=== PATIENT | female | born 1930 | race Asian ===

== ENCOUNTER 2020-01-24 22:55 | Inpatient (IN) | payer BC, MEDICAID ==
[~2020-01-24] VITALS: Ht 157.5 cm; Wt 85.7 kg
[~2020-01-24 22:55] MED LIST: AMLO5TAB15 PO; DEXL60CA4 PO; DONE5TAB31 PO; GLIP5TAB12 PO; LEVO25TA6 PO; LEVOTAB51 PO; LINA5TAB PO; MEMA21CA PO; METF-916 PO; NEBI5TAB2 PO; OLME1TAB23 PO; RALO1TAB PO
[2020-01-24] MEDS ORDERED: PROMETHAZINE HCL 25 MG/ML 1ML ONE (23:17)
[2020-01-24] MEDS ORDERED: HYDROmorphone HCL 2 MG/ML VL IV ONE (23:30)
[2020-01-24] MEDS ORDERED: PROMETHAZINE HCL 25 MG/ML 1ML IM ONE (23:30)
[2020-01-24] MEDS ORDERED: SODIUM CHLORIDE 0.9% 1,000 ML IV ONE (23:30)
[2020-01-24 23:47] LABS: Basophils # (auto) 0 10 ^3/uL (0-0.2); Basophils % (auto) 0.1 % (0.0-2.0); Eosinophils # (auto) 0 10 ^3/uL (0-0.8); Hematocrit 40.9 % (36.0-46.0); Hemoglobin 13.5 g/dL (12.2-16.2); Lymphocytes # (auto) 0.5 10 ^3/uL (0.4-5.4); Lymphocytes % (auto) 4.3 % (10.0-50.0); Mean Corpuscular Hemoglobin 31.5 pg (28.0-32.0); Mean Corpuscular Volume 95.5 fL (80.0-100.0); Monocytes # (auto) 0.6 10 ^3/uL (0-1.3); Monocytes % (auto) 5.1 % (0.0-12.0); Neutrophils # (auto) 10.5 10 ^3/uL (1.6-8.6); Neutrophils % (auto) 90.5 % (37.0-80.0); Platelet Count (auto) 187 10^3/uL (140-450); Red Blood Cells 4.28 10^6/uL (4.0-5.20); White Blood Cell 11.6 10^3/uL (4.4-10.8)
[2020-01-25 00:09] LABS: INR 0.95 (0.9-1.15); Partial Thromboplastin Time 23.8 sec (23.0-31.2)
[2020-01-25 00:12] LABS: Albumin 4.2 g/dL (3.4-5.0); BUN/Creatinine Ratio 21.4; Calcium 9.6 mg/dL (8.5-10.1); Magnesium 2.1 mg/dL (1.6-2.6)
[2020-01-25 00:17] LABS: Bilirubin, Total 0.8 mg/dL (0.2-1.0); Total Protein 8.8 g/dL (6.4-8.2)
[2020-01-25] MEDS ORDERED: metroNIDAZOLE 500MG/100ML 100 ML IV ONE (04:15)
[2020-01-25] MEDS ORDERED: PIPERACILLIN-TAZOB 3.375GM 100 ML IV ONE (04:15)
[2020-01-25] MEDS ORDERED: POTASSIUM CHL 20MEQ/100ML 100 ML IV ONE (06:00)
[2020-01-25] MEDS ORDERED: SODIUM CHLORIDE 0.9% 1,000 ML IV SCH (06:00)
[2020-01-25] MEDS ORDERED: MORPHINE SULF INJ 2 MG/ML SYRINGE 1ML IV PRN (06:00)
[2020-01-25] MEDS ORDERED: NITROGLYCERIN 0.4 MG SL TAB SL PRN (06:00)
[2020-01-25] MEDS ORDERED: InsuLIN REG 1unit/0.01ml Soln (100units/ml) ONE ×2 (08:21→09:01)
[2020-01-25] MEDS ORDERED: LIDOCAINE 1% (LOCAL ANESTH.) PF 5ml SDV ONE (08:51)
[2020-01-25] MEDS ORDERED: SUCCINYLCHOLINE CHLORIDE 20 MG/ML 10ML VIAL IV ONE (08:51)
[2020-01-25] MEDS ORDERED: ETOMIDATE (2MG/ML) 20ML VIAL IV ONE (08:54)
[2020-01-25] MEDS ORDERED: ROCURONIUM 10MG/ML 10ML VIAL IV ONE (08:54)
[2020-01-25] MEDS ORDERED: fentaNYL CITRATE 100 MCG/2 ML VL ONE (10:27)
[2020-01-25] MEDS ORDERED: ePHEDrine SULFATE 50 MG/ML AMP ONE (10:27)
[2020-01-25] MEDS ORDERED: SODIUM CHLORIDE LOCK 10 ML ONE ×2 (10:27→10:33)
[2020-01-25] MEDS ORDERED: PHENYLEPHRINE HCL 10 MG/ML VL ONE (10:33)
[2020-01-25] MEDS ORDERED: HYDROmorphone HCL 2 MG/ML VL IV ONE (11:30)
[2020-01-25] MEDS ORDERED: GLYCOPYRROLATE 0.2 MG/ML 1ML VIAL ONE (11:32)
[2020-01-25] MEDS ORDERED: NEOSTIGMINE 1 MG/ML INJ (10mg/10ML VIAL) ONE (11:32)
[2020-01-25] MEDS ORDERED: NALOXONE HCL 0.4 MG/ML VIAL IV PRN (12:00)
[2020-01-25] MEDS ORDERED: ACCU-CHEK COMFORT CURVE STRIP VI ONE (12:00)
[2020-01-25] MEDS ORDERED: HYDROmorphone HCL 2 MG/ML VL IV PRN (12:00)
[2020-01-25] MEDS ORDERED: ONDANSETRON HCL 4 MG/2 ML VIAL IV PRN (12:00)
--- NOTE | 2020-01-25 15:50 | NUR ---
RECEIVED REPORT FROM [employer] WORKFORCE PLANNER RE PATIENT STATUS AND FOR CONTINUATION OF CARE
--- NOTE | 2020-01-25 16:05 | NUR ---
PATIENT ADMITTED S/P EX. LAPAROTOY WITH RELEASED OF BOWEL OBSTRUCTION AND LYSIS OF ADHESION
--- NOTE | 2020-01-25 16:05 | NUR ---
Telemetry admit from PACU RIGO DEE admitted to Telemetry unit after SBAR received. Patient oriented to primary RN, unit, room, bed, and unit policies regarding patient care and visiting hours. Patient now on continuous telemetry monitoring, tele box #[id number] and telemetry reading on arrival to unit is SINUS TACH 103.ABDOMINAL DRESSING DRY INTACT,ABDOMINAL BINDER IN PLACE,MARY CATHETER IN PLACE DRAINING BLOODY TINGE URINE (PER PASSEMENTERIE WORKER,MD AWARE) Patient placed on bedside oxygen AT 3 LITERS NASAL CANNULA SATURATING 96%,INSTRUCTED NPO EXCEPT ICE CHIPS,IV SITE TO RIGHT AC g3 #20,VITAL SIGNS TAKEN BP 112/70,TEMP: 98.3,HR103,RR 22,CALL LIGHT WITHIN REACH,INSTRUCTED TO CALL FOR ASSISTANCE,CAREER CENTER DIRECTOR AT BEDSIDE,questions and concerns addressed, patient verbalized understanding.
[2020-01-25 16:29] VITALS: BP 112/70
[2020-01-25] MEDS: D5W/SOD CHL 0.45%/KCL 20MEQ 1,000 ML IV SCH ×2 (16:59→21:30)
[2020-01-25] MEDS: MORPHINE SULFATE 4 MG/ML SYR/VIAL IV PRN (16:59)
[2020-01-25 17:47] VITALS: BP 112/70
--- NOTE | 2020-01-25 19:18 | NUR ---
Opening note Assumed care of patient, patient is alert and orientated x4. No sob or distress noted at this time. Patient is resting in bed. Eating ice chips. Bed is locked in lowest position, side rails up x2.ABDOMINAL DRESSING DRY AND INTACT,ABDOMINAL BINDER IN PLACE. Call light is within reach, bed alarm is on. Will continue to monitor q1hr and PRN.
[2020-01-25] MEDS: metroNIDAZOLE 500MG/100ML 100 ML IV SCH ×2 (21:07→22:58)
[2020-01-25 22:00] VITALS: BP 116/71
[2020-01-26 05:00] VITALS: BP 135/72
[2020-01-26] MEDS: metroNIDAZOLE 500MG/100ML 100 ML IV SCH ×3 (05:41→21:03)
[2020-01-26 06:50] LABS: Basophils # (auto) 0 10 ^3/uL (0-0.2); Eosinophils # (auto) 0 10 ^3/uL (0-0.8); Eosinophils % (auto) 0.5 % (0.0-7.0); Hematocrit 42.9 % (36.0-46.0); Hemoglobin 14.2 g/dL (12.2-16.2); Lymphocytes # (auto) 0.5 10 ^3/uL (0.4-5.4); Lymphocytes % (auto) 5.6 % (10.0-50.0); Mean Corpuscular Hemoglobin 31.9 pg (28.0-32.0); Mean Corpuscular Hgb Conc. 33.2 g/dL (32.0-36.0); Mean Corpuscular Volume 96.2 fL (80.0-100.0); Monocytes # (auto) 0.5 10 ^3/uL (0-1.3); Monocytes % (auto) 6.8 % (0.0-12.0); Neutrophils % (auto) 87.1 % (37.0-80.0); Nucleated Red Blood Cells % 0.1 %; Platelet Count (auto) 182 10^3/uL (140-450); Red Blood Cells 4.46 10^6/uL (4.0-5.20); Red Cell Distribution Width 13.1 % (11.8-14.3)
[2020-01-26 07:11] LABS: Albumin 3.3 g/dL (3.4-5.0); Calcium 8.7 mg/dL (8.5-10.1); Potassium 4.1 mmol/L (3.5-5.1)
[2020-01-26 07:18] LABS: BUN/Creatinine Ratio 21.1; Bilirubin, Total 0.7 mg/dL (0.2-1.0); Total Protein 7.3 g/dL (6.4-8.2)
--- NOTE | 2020-01-26 07:30 | NUR ---
Opening note Upon entering room patient is awake, alert and orientated x4. No sob or distress noted at this time. Patient is resting in bed. Bed is locked in lowest position, side rails up x2. Abdominal dressing is dry and intact, abdominal binder in place. Instructed patient on the use of the call light PRN. Call light is within reach, bed alarm is on. Will continue to monitor for changes.
--- NOTE | 2020-01-26 07:33 | NUR ---
Closing note Endorsed care to day shift RN. no sob or distress noted.
[2020-01-26] MEDS: D5W/SOD CHL 0.45%/KCL 20MEQ 1,000 ML IV SCH (08:14)
[2020-01-26 09:00] VITALS: BP 146/83
[2020-01-26] MEDS: PANTOPRAZOLE 40 MG/10 ML VIAL INJ IV SCH ×2 (10:21→10:45)
[2020-01-26] MEDS: cefTRIAXone 1GM/50ML D5W 50 ML IV SCH ×2 (10:21→10:46)
[2020-01-26 10:26] LABS: Urine Bacteria FEW /hpf (None Seen); Urine Blood TRACE /uL (Negative); Urine Hyaline Cast FEW /lpf (0 - 2); Urine Mucus FEW (None Seen); Urine Specific Gravity 1.016 (1.001-1.035); Urine WBC 63 /hpf (0 - 5)
--- NOTE | 2020-01-26 11:00 | NUR ---
Paged Dr. Aldridge Regarding diet. Awaiting call back.
--- NOTE | 2020-01-26 11:05 | NUR ---
Spoke to Dr. Aldridge Regarding diet. Stated to start patient on clear liquid diet.
--- NOTE | 2020-01-26 11:30 | NUR ---
Dr. Aldridge at bedside Regarding diet. Requested patient continue on NPO except ice chips diet.
[2020-01-26] MEDS: SODIUM CHLORIDE 0.9% 1,000 ML IV SCH ×2 (12:18→19:13)
[2020-01-26 12:47] VITALS: BP 139/79
[2020-01-26 17:00] VITALS: BP 146/78
--- NOTE | 2020-01-26 17:02 | NUR ---
Patient states that she wants to leave AMA to go to [facility]. Patient states that "we do not care about her." I attempted to find out why she felt this way but she just waved me away multiple times. she called her family and spoke to them. I attempted to speak to them too but when I talked on the phone to them they would hang up. I called the patient's NOK and a woman answered who spoke possibly Danish but did not speak Kiswahili. Per patient, her daughter and are coming to get her. Patient upset that the glasses that her family was supposed to bring are not downstairs at [facility]. I told her that I called but glasses are not available. after consoling patient and trying to earn trust, she told me she was upset because doctor came in and cancelled her diet order and made her NPO except ice chips. I informed her that MD Aldridge changed her diet to NPO except ice chips because her bowels are hypoactive and she is not passing flatus. I listened to her bowels and they were hypoactive. Patient admitted she did not pass flatus or have BM either before or after speaking to MD Aldridge. I have paged MD Aldridge to notify him of her issues to prevent her from leaving [facility].
--- NOTE | 2020-01-26 17:05 | NUR ---
Spoke to CHELSI Pillai and notified him of patient's concern. CHELSI Pillai aware patient's bowel sounds are hypoactive and that she is currently on IV fluids. Order received: Reglan 10 mg IV Once.
--- NOTE | 2020-01-26 17:06 | NUR ---
MD Aldridge called back and I made him aware of Patient's desire to have food. Per MD, she cannot have any food except ice chips until her bowels become more active and she passes flatus. made aware that patient may leave AMA. He said that is her decision but he cannot change the diet order at this time.
[2020-01-26] MEDS ORDERED: METOCLOPRAMIDE HCL 5MG/ml INJ 2ml VIAL IV ONE (17:30)
--- NOTE | 2020-01-26 18:04 | NUR ---
Patient accidentally pulled out IV. IV insertion. IV access obtained, via clean technique by inserting a 22 gauge catheter into a vein in the left AC after 2 attempts. IV secured properly. No trauma to site. Patient tolerated well.
[2020-01-27] MEDS: SODIUM CHLORIDE 0.9% 1,000 ML IV SCH ×3 (03:40→19:15)
[2020-01-27 05:28] VITALS: BP 152/77
[2020-01-27] MEDS: metroNIDAZOLE 500MG/100ML 100 ML IV SCH ×3 (05:39→21:41)
--- NOTE | 2020-01-27 05:55 | NUR ---
BP reassessment: 144/72. Will continue to assess.
[2020-01-27 06:21] LABS: Potassium 4.5 mmol/L (3.5-5.1)
[2020-01-27 06:33] LABS: Albumin 2.4 g/dL (3.4-5.0); BUN/Creatinine Ratio 36.3; Bilirubin, Total 0.7 mg/dL (0.2-1.0); Calcium 7.7 mg/dL (8.5-10.1); Total Protein 6.4 g/dL (6.4-8.2)
[2020-01-27 09:00] VITALS: BP 150/85
--- NOTE | 2020-01-27 10:03 | NUR ---
Patient walks with PT , patient tolerated well with stand by assist.
[2020-01-27] MEDS: PANTOPRAZOLE 40 MG/10 ML VIAL INJ IV SCH (10:12)
[2020-01-27] MEDS: cefTRIAXone 1GM/50ML D5W 50 ML IV SCH (10:12)
[2020-01-27 10:34] LABS: Basophils # (auto) 0 10 ^3/uL (0-0.2); Basophils % (auto) 0.1 % (0.0-2.0); Eosinophils # (auto) 0.1 10 ^3/uL (0-0.8); Eosinophils % (auto) 1.5 % (0.0-7.0); Hematocrit 39.4 % (36.0-46.0); Hemoglobin 12.9 g/dL (12.2-16.2); Lymphocytes # (auto) 0.7 10 ^3/uL (0.4-5.4); Lymphocytes % (auto) 10.2 % (10.0-50.0); Mean Corpuscular Hemoglobin 31.7 pg (28.0-32.0); Mean Corpuscular Hgb Conc. 32.6 g/dL (32.0-36.0); Mean Corpuscular Volume 97.3 fL (80.0-100.0); Monocytes # (auto) 0.5 10 ^3/uL (0-1.3); Neutrophils # (auto) 5.5 10 ^3/uL (1.6-8.6); Neutrophils % (auto) 81.2 % (37.0-80.0); Platelet Count (auto) 170 10^3/uL (140-450); Red Blood Cells 4.05 10^6/uL (4.0-5.20); Red Cell Distribution Width 13.1 % (11.8-14.3); White Blood Cell 6.7 10^3/uL (4.4-10.8)
--- NOTE | 2020-01-27 11:48 | NUR ---
Assessment Patient is an 89-year-old female. Assessment was completed with patient louise son Giancarlo . Prior to admission patient reside home with Giancarlo and family and functioned with assistance. Patient caregiver and IHSS is patient louise daughter Analiila Muro. Patient will return home to her prior living arrangements post discharge and family will transport her home. Per Giancarlo patient has all the care she needs at home. Patient has great family support. Patient has a cane, walker and wheelchair for home use. Informed Giancarlo he has the right to participate in all discharge planning. Giancarlo verbalized understanding. Addendum: 01/27/[address] at [address] Amended: Links added.
--- NOTE | 2020-01-27 12:13 | NUR ---
Nutrition Assessment Est energy needs 7716-1744 kcal (25-30 kcal/kg BW 58.5kg) Est protein needs 47-59g (0.8-1g/kg BW 58.5kg) Will monitor and reassess prn. Addendum: 01/27/20 at [address] Amended: Links added.
[2020-01-27 13:00] VITALS: BP 142/76
--- NOTE | 2020-01-27 13:57 | NUR ---
Dr. Aldridge paged regarding diet status, awaiting to call back.
--- NOTE | 2020-01-27 13:59 | NUR ---
Received a call from Dr. Aldridge to advance diet as tolerated. Noted and carried it out.
[2020-01-27 16:35] VITALS: BP 150/78
--- NOTE | 2020-01-27 19:00 | NUR ---
Opening Shift Note Assumed care of patient, awake and alert. No S/S of distress/SOB or pain. Instructed on POC and to call for assist PRN, will continue to monitor for changes Q1hr and PRN. Patient in the lowest possible position with call light within reach and bed rails up x2.
[2020-01-27 20:00] VITALS: BP 131/67
[2020-01-27 22:00] VITALS: BP 157/82
[2020-01-28] MEDS: SODIUM CHLORIDE 0.9% 1,000 ML IV SCH ×3 (03:04→19:45)
[2020-01-28 05:00] VITALS: BP 164/81
[2020-01-28] MEDS: metroNIDAZOLE 500MG/100ML 100 ML IV SCH ×3 (05:19→21:50)
[2020-01-28] MEDS: MORPHINE SULFATE 4 MG/ML SYR/VIAL IV PRN ×3 (05:34→22:25)
--- NOTE | 2020-01-28 05:34 | NUR ---
Patient c/o pain of 8/10 in her abdominal incisional site, will administer pain medication per protocol according to pain and standards in eMAR. Will continue to monitor patient.
[2020-01-28 09:00] VITALS: BP 166/86
[2020-01-28] MEDS: cefTRIAXone 1GM/50ML D5W 50 ML IV SCH (09:17)
[2020-01-28] MEDS: PANTOPRAZOLE 40 MG/10 ML VIAL INJ IV SCH (09:17)
--- NOTE | 2020-01-28 09:22 | NUR ---
Patient have abdominal pain after having full liquid diet, unable to advance diet. Will continue to monitor.
[2020-01-28] MEDS: ONDANSETRON HCL 4 MG/2 ML VIAL IV PRN ×2 (09:58→22:25)
[2020-01-28 10:01] VITALS: BP 155/75
--- NOTE | 2020-01-28 10:05 | NUR ---
Oxygen 0.5 L, 91-94 %. No SOB. Will continue to monitor.
--- NOTE | 2020-01-28 10:30 | NUR ---
Dr. Mendez at bedside, received new order to DC mejia, noted and carried it out.
--- NOTE | 2020-01-28 10:37 | NUR ---
Mejia catheter dc'd Order to discontinue mejia catheter. Mejia dc'd with clean technique following deflation of balloon. Patient tolerated well with no complaints of pain. Continue care.
--- NOTE | 2020-01-28 11:57 | NUR ---
Patient urinated clear yellow urine.
[2020-01-28 13:00] VITALS: BP 148/91
--- NOTE | 2020-01-28 13:11 | NUR ---
Patient have full liquid diet for lunch, tolerated well. Will advance diet to soft for dinner.
--- NOTE | 2020-01-28 18:47 | NUR ---
Spoke to Dr. Cuello regarding BP 187/77 HR 100, received new orders, noted and carried it out.
[2020-01-28] MEDS ORDERED: LABETALOL HCL 5 MG/ML 4ML SYRINGE IV ONE (19:00)
[2020-01-28] MEDS ORDERED: LABETALOL HCL 5 MG/ML 4ML SYRINGE IV PRN (19:00)
--- NOTE | 2020-01-28 19:20 | NUR ---
Opening Shift Note Assumed patient care. Patient AOx4 and HOB at 90 degrees. Patient is sitting on bed [place]gadillo. Patient says she has flatulence but no bowel movement was present. Patient has no s/s of distress or SOB. Patient bed locked in lowest position and call light is within reach. Will continue to monitor patient.
[2020-01-28 22:00] VITALS: BP 148/76
[2020-01-29] MEDS: SODIUM CHLORIDE 0.9% 1,000 ML IV SCH (03:49)
[2020-01-29 05:00] VITALS: BP 166/87
[2020-01-29] MEDS: metroNIDAZOLE 500MG/100ML 100 ML IV SCH ×2 (05:26→13:40)
--- NOTE | 2020-01-29 07:45 | NUR ---
Opening Shift Note Assumed care of patient, awake and alert bed is locked and in lowest position , bed rails up x2 , call light is within reach. No S/S of distress/SOB or pain. Instructed on POC and to call for assistance PRN, will continue to monitor for changes Q1hr and PRN.
[2020-01-29 08:30] VITALS: BP 163/86
[2020-01-29] MEDS: MORPHINE SULFATE 4 MG/ML SYR/VIAL IV PRN (08:37)
[2020-01-29] MEDS: cefTRIAXone 1GM/50ML D5W 50 ML IV SCH (09:17)
[2020-01-29] MEDS: PANTOPRAZOLE 40 MG/10 ML VIAL INJ IV SCH (10:01)
[2020-01-29 12:58] VITALS: BP 160/81
== END 2020-01-29 15:45 | disposition home or self-care (01) | DRG 329 ==
LOC: EDBD 22:55 → ER 23:03 → TELE 23:04 → TELE-WESTW 01-25 16:23
PROVIDERS: ADMIT Nurse Practitioner; ATTEND Family Medicine
PROC: 0DQ80ZZ Repair Small Intestine, Open Approach (ICD-10-PCS; principal; 2020-01-25 10:15)
DX: K56.609 Unspecified intestinal obstruction, unspecified as to partial versus complete obstruction (principal); N17.0 Acute kidney failure with tubular necrosis; K55.9 Vascular disorder of intestine, unspecified; N39.0 Urinary tract infection, site not specified; E86.0 Dehydration; Z20.828 Contact with and (suspected) exposure to other viral communicable diseases; E78.00 Pure hypercholesterolemia, unspecified; E78.5 Hyperlipidemia, unspecified; M19.90 Unspecified osteoarthritis, unspecified site; I12.9 Hypertensive chronic kidney disease with stage 1 through stage 4 chronic kidney disease, or unspecified chronic kidney disease; N18.9 Chronic kidney disease, unspecified; E03.9 Hypothyroidism, unspecified; I25.10 Atherosclerotic heart disease of native coronary artery without angina pectoris; Z86.73 Personal history of transient ischemic attack (TIA), and cerebral infarction without residual deficits; Z83.3 Family history of diabetes mellitus; Z90.710 Acquired absence of both cervix and uterus; Z95.5 Presence of coronary angioplasty implant and graft; Z79.899 Other long term (current) drug therapy
CPT/HCPCS: 36415; 71045; 74176; 80053; 81001; 82150; 82962; 83690; 83735; 84484; 85025; 85610; 85730; 86850; 86900; 86901; 87086; 87088; 87186; 87426; 97116; 97163; 97530; C9113; G0378; J0330; J0696; J1815; J2405; J2543; J3480; J3490

== ENCOUNTER 2020-01-31 08:53 | Emergency (ER) | payer BC, MEDICAID ==
[2020-01-31 09:38] LABS: Basophils # (auto) 0.1 10 ^3/uL (0-0.2); Eosinophils # (auto) 0.1 10 ^3/uL (0-0.8); Eosinophils % (auto) 1.9 % (0.0-7.0); Hematocrit 39.3 % (36.0-46.0); Hemoglobin 12.8 g/dL (12.2-16.2); Lymphocytes # (auto) 0.8 10 ^3/uL (0.4-5.4); Lymphocytes % (auto) 14.1 % (10.0-50.0); Mean Corpuscular Hemoglobin 31.2 pg (28.0-32.0); Mean Corpuscular Hgb Conc. 32.7 g/dL (32.0-36.0); Mean Corpuscular Volume 95.3 fL (80.0-100.0); Monocytes # (auto) 0.7 10 ^3/uL (0-1.3); Monocytes % (auto) 12.9 % (0.0-12.0); Neutrophils # (auto) 3.8 10 ^3/uL (1.6-8.6); Neutrophils % (auto) 70.1 % (37.0-80.0); Nucleated Red Blood Cells % 0.1 %; Platelet Count (auto) 255 10^3/uL (140-450); Red Blood Cells 4.12 10^6/uL (4.0-5.20); Red Cell Distribution Width 12.8 % (11.8-14.3); White Blood Cell 5.4 10^3/uL (4.4-10.8)
[2020-01-31 09:54] LABS: Calcium 8.5 mg/dL (8.5-10.1); Potassium 4.1 mmol/L (3.5-5.1)
[2020-01-31 10:00] LABS: BUN/Creatinine Ratio 7.2; Bilirubin, Total 0.4 mg/dL (0.2-1.0); Total Protein 6.7 g/dL (6.4-8.2)
[2020-01-31] MEDS ORDERED: SODIUM CHLORIDE 0.9% 1,000 ML IV ONE ×2 (11:15)
[2020-01-31 21:29] VITALS: BP 165/87
== END 2020-01-31 22:46 | disposition home or self-care (01) ==
LOC: EDBD 08:53 → ER 08:53
DX: E11.65 Type 2 diabetes mellitus with hyperglycemia (principal); R53.1 Weakness; E78.5 Hyperlipidemia, unspecified; I10 Essential (primary) hypertension; Z90.710 Acquired absence of both cervix and uterus; Z86.73 Personal history of transient ischemic attack (TIA), and cerebral infarction without residual deficits
CPT/HCPCS: 36415; 71045; 74176; 80053; 84484; 85025; 93005

== ENCOUNTER 2021-12-02 21:56 | Inpatient (IN) | payer MEDICARE, MEDICAID ==
[~2021-12-02] VITALS: Ht 162.6 cm; Wt 71.3 kg
[~2021-12-02 21:56] MED LIST changes: +AMLO-489 PO; -AMLO5TAB15 PO; -DONE5TAB31 PO; +DONE5TAB80 PO; -OLME1TAB23 PO; +OLME1TAB73 PO
[2021-12-02] MEDS ORDERED: DEXTROSE (50%) 50ML SYRG IV ONE (22:15)
[2021-12-02 23:37] LABS: Basophils # (auto) 0 10 ^3/uL (0-0.2); Basophils % (auto) 0.4 % (0.0-2.0); Eosinophils # (auto) 0 10 ^3/uL (0-0.8); Eosinophils % (auto) 0.4 % (0.0-7.0); Hematocrit 25.3 % (36.0-46.0); Hemoglobin 7.9 g/dL (12.2-16.2); Lymphocytes # (auto) 0.3 10 ^3/uL (0.4-5.4); Lymphocytes % (auto) 4.2 % (10.0-50.0); Mean Corpuscular Hemoglobin 20.8 pg (28.0-32.0); Mean Corpuscular Hgb Conc. 31.1 g/dL (32.0-36.0); Mean Corpuscular Volume 66.9 fL (80.0-100.0); Monocytes # (auto) 0.7 10 ^3/uL (0-1.3); Monocytes % (auto) 8.8 % (0.0-12.0); Neutrophils % (auto) 86.2 % (37.0-80.0); Nucleated Red Blood Cells % 0.1 %; Red Blood Cells 3.78 10^6/uL (4.0-5.20); White Blood Cell 8.1 10^3/uL (4.4-10.8)
[2021-12-02 23:38] LABS: Red Cell Distribution Width 20.5 % (11.8-14.3)
[2021-12-02 23:44] LABS: INR 0.97 (0.9-1.15); Partial Thromboplastin Time 27.7 sec (24.6-33.4)
[2021-12-02 23:47] LABS: Albumin 3.2 g/dL (3.4-5.0); BUN/Creatinine Ratio 14.8; Calcium 8.3 mg/dL (8.5-10.1); Magnesium 2.6 mg/dL (1.6-2.6); Potassium 5.4 mmol/L (3.5-5.1)
[2021-12-02 23:50] LABS: Bilirubin, Total 0.3 mg/dL (0.2-1.0); Total Protein 7.3 g/dL (6.4-8.2)
[2021-12-03] MEDS ORDERED: CALCIUM GLUC 1,000mg/50ml-NS 50 ML IV ONE (02:45)
[2021-12-03] MEDS ORDERED: DEXTROSE (50%) 50ML SYRG IV ONE ×3 (02:45→11:00)
[2021-12-03] MEDS ORDERED: InsuLIN REG 1unit/0.01ml Soln (100units/ml) IV ONE (02:45)
[2021-12-03] MEDS ORDERED: DEXTROSE 50% SYRINGE 50 ML IV ONE (10:48)
[2021-12-03] MEDS ORDERED: D5W/SOD CHLO 0.9% 1,000 ML IV ONE (11:00)
[2021-12-03] MEDS ORDERED: DEXTROSE (50%) 50ML SYRG IV PRN (15:00)
[2021-12-03] MEDS ORDERED: NITROGLYCERIN 0.4 MG SL TAB SL PRN (15:00)
[2021-12-03] MEDS ORDERED: MORPHINE SULFATE INJ 2 MG/ml SYRG IV PRN (15:00)
[2021-12-03] MEDS: InsuLIN REG 1unit/0.01ml Soln (100units/ml) SC SCH ×2 (18:00→23:07)
[2021-12-03] MEDS: ACCU-CHEK COMFORT CURVE STRIP VI SCH ×2 (18:12→23:02)
[2021-12-03 19:00] VITALS: BP 126/52
[2021-12-03 19:05] VITALS: BP 126/52
[2021-12-04] MEDS: ACCU-CHEK COMFORT CURVE STRIP VI SCH ×4 (05:42→23:11)
[2021-12-04] MEDS: InsuLIN REG 1unit/0.01ml Soln (100units/ml) SC SCH ×4 (05:44→23:14)
[2021-12-04 06:25] VITALS: BP 113/51
[2021-12-04 06:25] LABS: BUN/Creatinine Ratio 17.5; Calcium 8.3 mg/dL (8.5-10.1); Potassium 4.9 mmol/L (3.5-5.1)
[2021-12-04 06:32] LABS: Hematocrit 25.2 % (36.0-46.0)
[2021-12-04 06:40] LABS: Hemoglobin 7.9 g/dL (12.2-16.2); Mean Corpuscular Hemoglobin 20.7 pg (28.0-32.0); Mean Corpuscular Hgb Conc. 31.3 g/dL (32.0-36.0); Mean Corpuscular Volume 66.2 fL (80.0-100.0); White Blood Cell 5.7 10^3/uL (4.4-10.8)
[2021-12-04 06:44] LABS: Basophils % (manual) 0 (0.0-2.0); Metamyelocytes % 0; Red Cell Distribution Width 20.3 % (11.8-14.3)
[2021-12-04 06:45] LABS: Blast Cells 0; Myelocytes % 0; Promyelocytes % 0; Reactive Lymphocytes 0
[2021-12-04 08:14] LABS: Band Neutrophils % (manual) 3; Eosinophils % (manual) 1 (0-7); Lymphocytes % (manual) 11 (10.0-50.0); Monocytes % (manual) 8 (0-12)
[2021-12-04 09:00] VITALS: BP 109/52
[2021-12-04] MEDS ORDERED: cefTRIAXone 1GM/50ML D5W 50 ML IV ONE (11:00)
[2021-12-04 22:00] VITALS: BP 126/58
[2021-12-05 04:57] VITALS: BP 115/70
[2021-12-05] MEDS: ACCU-CHEK COMFORT CURVE STRIP VI SCH ×4 (06:14→23:40)
[2021-12-05] MEDS: InsuLIN REG 1unit/0.01ml Soln (100units/ml) SC SCH ×4 (06:15→23:40)
[2021-12-05 09:00] VITALS: BP 115/58
[2021-12-05] MEDS: cefTRIAXone 1GM/50ML D5W 50 ML IV SCH (09:53)
[2021-12-05] MEDS ORDERED: amLODIPine BESYLATE 5 MG TAB PO ONE (10:45)
[2021-12-05] MEDS ORDERED: MEMANTINE HCL 5 MG TAB PO ONE (10:45)
[2021-12-05] MEDS ORDERED: LEVOTHYROXINE SODIUM 25 MCG TAB PO ONE (10:45)
[2021-12-05 12:52] VITALS: BP 116/62
[2021-12-05 16:49] VITALS: BP 121/56
[2021-12-05 22:35] VITALS: BP 124/52
[2021-12-06 05:10] VITALS: BP 109/54
[2021-12-06] MEDS: ACCU-CHEK COMFORT CURVE STRIP VI SCH ×2 (06:07→12:20)
[2021-12-06] MEDS: InsuLIN REG 1unit/0.01ml Soln (100units/ml) SC SCH ×2 (06:08→12:24)
[2021-12-06] MEDS ORDERED: LEVOTHYROXINE SODIUM 25 MCG TAB PO SCH (07:00)
[2021-12-06 09:00] VITALS: BP 118/63
[2021-12-06] MEDS: cefTRIAXone 1GM/50ML D5W 50 ML IV SCH (09:36)
[2021-12-06] MEDS ORDERED: amLODIPine BESYLATE 5 MG TAB PO SCH (10:00)
[2021-12-06] MEDS ORDERED: MEMANTINE HCL 5 MG TAB PO SCH (10:00)
[2021-12-06] MEDS ORDERED: PANTOPRAZOLE 40 MG TAB PO SCH (10:00)
[2021-12-06] MEDS ORDERED: LISINOPRIL 10 MG TAB PO SCH (10:00)
[2021-12-06] MEDS ORDERED: LEVO500T31 PO (10:53)
[2021-12-06] MEDS ORDERED: FERR-7 PO (10:53)
[2021-12-06 11:43] VITALS: BP 118/63
[2021-12-06 12:51] VITALS: BP 119/48
== END 2021-12-06 12:54 | disposition home or self-care (01) | DRG 637 ==
LOC: EDSEX 21:56 → EDUNIT# 21:56 → EDBD 21:56 → EDSEX 21:59 → ER 21:59 → EDUNIT# 21:59 → TELE-WESTW 12-03 14:58 → UNDOADMIN 12-03 14:58 → TELE 12-03 14:58 → TELE-WESTW 12-03 18:54 → TELE 12-03 18:54
PROVIDERS: ADMIT Nurse Practitioner Acute Care; ATTEND Family Medicine
DX: E11.649 Type 2 diabetes mellitus with hypoglycemia without coma (principal); G93.41 Metabolic encephalopathy; I50.23 Acute on chronic systolic (congestive) heart failure; J18.9 Pneumonia, unspecified organism; I47.20 Ventricular tachycardia, unspecified; I13.0 Hypertensive heart and chronic kidney disease with heart failure and stage 1 through stage 4 chronic kidney disease, or unspecified chronic kidney disease; N18.31 Chronic kidney disease, stage 3a; D63.8 Anemia in other chronic diseases classified elsewhere; E03.9 Hypothyroidism, unspecified; E11.22 Type 2 diabetes mellitus with diabetic chronic kidney disease; E11.65 Type 2 diabetes mellitus with hyperglycemia; E87.5 Hyperkalemia; F03.90 Unspecified dementia, unspecified severity, without behavioral disturbance, psychotic disturbance, mood disturbance, and anxiety; Z88.8 Allergy status to other drugs, medicaments and biological substances
CPT/HCPCS: 36415; 71045; 80048; 80053; 82962; 83036; 83735; 83880; 84484; 85007; 85025; 85027; 85610; 85730; 87426; 93005; 96361; 96365; 96375; 99291; G0378; J0696; J1815; J7042

== ENCOUNTER 2022-03-04 14:34 | Inpatient (IN) | payer OTHER, MEDICAID ==
[~2022-03-04] VITALS: Ht 157.5 cm; Wt 63.0 kg
[~2022-03-04 14:34] MED LIST changes: +FERR-7 PO; +LEVO500T31 PO
[2022-03-04] MEDS ORDERED: MORPHINE SULFATE 4 MG/ML SYR/VIAL IV ONE (15:15)
[2022-03-04] MEDS ORDERED: KETOROLAC TROMETH 30 MG/ML 1ML VIAL IV ONE (15:15)
[2022-03-04] MEDS ORDERED: DexAMETHasone SOD PHOS 10MG/1ML VIAL INJ IV ONE (15:15)
[2022-03-04 15:58] LABS: Basophils # (auto) 0 10 ^3/uL (0-0.2); Basophils % (auto) 0.2 % (0.0-2.0); Eosinophils # (auto) 0 10 ^3/uL (0-0.8); Eosinophils % (auto) 0.4 % (0.0-7.0); Hemoglobin 9.3 g/dL (12.2-16.2); Lymphocytes # (auto) 1.1 10 ^3/uL (0.4-5.4); Mean Corpuscular Hemoglobin 27.2 pg (28.0-32.0); Mean Corpuscular Hgb Conc. 33.3 g/dL (32.0-36.0); Mean Corpuscular Volume 81.6 fL (80.0-100.0); Monocytes # (auto) 0.7 10 ^3/uL (0-1.3); Neutrophils # (auto) 7.8 10 ^3/uL (1.6-8.6); Neutrophils % (auto) 81.4 % (37.0-80.0); Red Blood Cells 3.43 10^6/uL (4.0-5.20); Red Cell Distribution Width 17.1 % (11.8-14.3); White Blood Cell 9.6 10^3/uL (4.4-10.8)
[2022-03-04 16:15] LABS: Albumin 3.5 g/dL (3.4-5.0); Calcium 9.2 mg/dL (8.5-10.1); Potassium 4.1 mmol/L (3.5-5.1)
[2022-03-04 16:20] LABS: BUN/Creatinine Ratio 41.3; Bilirubin, Total 0.4 mg/dL (0.2-1.0); Total Protein 8.1 g/dL (6.4-8.2)
[2022-03-04] MEDS ORDERED: DEXTROSE (50%) 50ML SYRG IV PRN (18:00)
[2022-03-04] MEDS ORDERED: hydrALAZINE HCL 20 MG/ML VL IV PRN (18:15)
[2022-03-04 18:34] LABS: Cholesterol 137 mg/dL (< 200)
[2022-03-04 18:37] LABS: HDL Cholesterol 61 mg/dL (40-59); LDL Cholesterol 72 mg/dL (< 100); Triglycerides 81 mg/dL (< 150)
[2022-03-04 18:38] LABS: Urine Bacteria FEW /hpf (None Seen); Urine Blood Negative /uL (Negative); Urine Specific Gravity 1.014 (1.001-1.035); Urine WBC 173 /hpf (0 - 5)
[2022-03-04] MEDS: ACCU-CHEK COMFORT CURVE STRIP VI SCH (23:59)
[2022-03-04] MEDS: FERROUS SULFATE 325mg EC TAB PO SCH (23:59)
[2022-03-04] MEDS: InsuLIN REG 1unit/0.01ml Soln (100units/ml) SC SCH (23:59)
[2022-03-05 06:38] LABS: Basophils # (auto) 0 10 ^3/uL (0-0.2); Basophils % (auto) 0.1 % (0.0-2.0); Eosinophils # (auto) 0 10 ^3/uL (0-0.8); Mean Corpuscular Hemoglobin 26.2 pg (28.0-32.0); Mean Corpuscular Hgb Conc. 31.7 g/dL (32.0-36.0); Monocytes # (auto) 0.5 10 ^3/uL (0-1.3)
[2022-03-05 06:39] LABS: Hematocrit 27.6 % (36.0-46.0); Hemoglobin 8.7 g/dL (12.2-16.2); Lymphocytes # (auto) 0.8 10 ^3/uL (0.4-5.4); Lymphocytes % (auto) 7.9 % (10.0-50.0); Mean Corpuscular Volume 82.7 fL (80.0-100.0); Monocytes % (auto) 5.2 % (0.0-12.0); Neutrophils # (auto) 8.8 10 ^3/uL (1.6-8.6); Neutrophils % (auto) 86.8 % (37.0-80.0); Red Blood Cells 3.33 10^6/uL (4.0-5.20); Red Cell Distribution Width 16.7 % (11.8-14.3); White Blood Cell 10.1 10^3/uL (4.4-10.8)
[2022-03-05 06:43] LABS: Albumin 2.9 g/dL (3.4-5.0); Calcium 9.1 mg/dL (8.5-10.1); Potassium 4.6 mmol/L (3.5-5.1)
[2022-03-05 06:46] LABS: Bilirubin, Total 0.3 mg/dL (0.2-1.0); Total Protein 7.1 g/dL (6.4-8.2)
[2022-03-05] MEDS: ACCU-CHEK COMFORT CURVE STRIP VI SCH ×4 (06:56→21:46)
[2022-03-05] MEDS: InsuLIN REG 1unit/0.01ml Soln (100units/ml) SC SCH ×4 (07:05→21:49)
[2022-03-05] MEDS: FERROUS SULFATE 325mg EC TAB PO SCH ×2 (11:13→21:37)
[2022-03-05] MEDS: LEVOTHYROXINE SODIUM 25 MCG TAB PO SCH (11:14)
[2022-03-05] MEDS: DONEPEZIL HYDROCHLORIDE 5 MG TAB PO SCH (11:15)
[2022-03-05] MEDS: amLODIPine BESYLATE 5 MG TAB PO SCH (11:18)
[2022-03-05] MEDS: MEMANTINE HYDROCHLORIDE PO SCH (12:40)
[2022-03-05] MEDS: RALOXIFENE HCL 60 MG TAB PO SCH (12:53)
[2022-03-05] MEDS ORDERED: cefTRIAXone 1GM/50ML D5W 50 ML IV ONE (13:15)
[2022-03-05] MEDS: LORazepam 0.5 MG TAB PO PRN ×2 (14:39→22:49)
[2022-03-05] MEDS: KETOROLAC TROMETH 30 MG/ML 1ML VIAL IV PRN ×2 (14:48→21:37)
[2022-03-05 18:00] VITALS: BP 135/59
[2022-03-05 19:30] VITALS: BP 138/70
[2022-03-05 21:30] VITALS: BP 138/75
[2022-03-05 22:00] VITALS: BP 118/50
[2022-03-06 05:00] VITALS: BP 130/55
[2022-03-06] MEDS: ACCU-CHEK COMFORT CURVE STRIP VI SCH ×4 (06:01→22:31)
[2022-03-06] MEDS: KETOROLAC TROMETH 30 MG/ML 1ML VIAL IV PRN ×3 (06:01→22:32)
[2022-03-06] MEDS: InsuLIN REG 1unit/0.01ml Soln (100units/ml) SC SCH ×4 (06:02→22:32)
[2022-03-06 08:40] VITALS: BP 124/46
[2022-03-06] MEDS: MEMANTINE HYDROCHLORIDE PO SCH (10:00)
[2022-03-06] MEDS: RALOXIFENE HCL 60 MG TAB PO SCH (10:00)
[2022-03-06] MEDS: cefTRIAXone 1GM/50ML D5W 50 ML IV SCH (10:36)
[2022-03-06] MEDS: FERROUS SULFATE 325mg EC TAB PO SCH ×2 (10:37→22:25)
[2022-03-06] MEDS: DONEPEZIL HYDROCHLORIDE 5 MG TAB PO SCH (10:38)
[2022-03-06] MEDS: LEVOTHYROXINE SODIUM 25 MCG TAB PO SCH (10:39)
[2022-03-06] MEDS: amLODIPine BESYLATE 5 MG TAB PO SCH (10:39)
[2022-03-06 13:00] VITALS: BP 115/54
[2022-03-06 17:17] VITALS: BP 146/55
[2022-03-06] MEDS: LORazepam 0.5 MG TAB PO PRN (19:57)
[2022-03-06 20:00] VITALS: BP 118/65
[2022-03-06 22:00] VITALS: BP 127/55
[2022-03-07 05:00] VITALS: BP 134/60
[2022-03-07] MEDS: KETOROLAC TROMETH 30 MG/ML 1ML VIAL IV PRN ×3 (05:14→20:36)
[2022-03-07] MEDS: InsuLIN REG 1unit/0.01ml Soln (100units/ml) SC SCH ×4 (06:10→22:48)
[2022-03-07] MEDS: ACCU-CHEK COMFORT CURVE STRIP VI SCH ×4 (06:11→22:44)
[2022-03-07 08:40] VITALS: BP 142/52
[2022-03-07] MEDS: cefTRIAXone 1GM/50ML D5W 50 ML IV SCH (09:09)
[2022-03-07] MEDS: MEMANTINE HYDROCHLORIDE PO SCH (10:00)
[2022-03-07] MEDS: RALOXIFENE HCL 60 MG TAB PO SCH (10:44)
[2022-03-07] MEDS: amLODIPine BESYLATE 5 MG TAB PO SCH (10:45)
[2022-03-07] MEDS: FERROUS SULFATE 325mg EC TAB PO SCH ×2 (10:45→22:54)
[2022-03-07] MEDS: DONEPEZIL HYDROCHLORIDE 5 MG TAB PO SCH (10:45)
[2022-03-07] MEDS: LEVOTHYROXINE SODIUM 25 MCG TAB PO SCH (10:46)
[2022-03-07] MEDS ORDERED: ERTAPENEM SOD INJ 1 GM in SODIUM CHL 0.9% 50 ML IV ONE (12:00)
[2022-03-07 12:40] VITALS: BP 137/46
[2022-03-07 16:40] VITALS: BP 133/55
[2022-03-07] MEDS: LORazepam 0.5 MG TAB PO PRN (18:25)
[2022-03-07 22:00] VITALS: BP 144/68
[2022-03-08] MEDS: KETOROLAC TROMETH 30 MG/ML 1ML VIAL IV PRN ×3 (04:37→18:21)
[2022-03-08 05:00] VITALS: BP 126/53
[2022-03-08] MEDS: ACCU-CHEK COMFORT CURVE STRIP VI SCH ×4 (06:38→21:40)
[2022-03-08] MEDS: InsuLIN REG 1unit/0.01ml Soln (100units/ml) SC SCH ×4 (06:40→21:38)
[2022-03-08 08:00] VITALS: BP 148/59
[2022-03-08 09:00] VITALS: BP 148/59
[2022-03-08] MEDS ORDERED: TRAM50TA2 PO (09:53)
[2022-03-08] MEDS: cefTRIAXone 1GM/50ML D5W 50 ML IV SCH (09:59)
[2022-03-08] MEDS: DONEPEZIL HYDROCHLORIDE 5 MG TAB PO SCH (09:59)
[2022-03-08] MEDS: MEMANTINE HYDROCHLORIDE PO SCH (10:00)
[2022-03-08] MEDS: LEVOTHYROXINE SODIUM 25 MCG TAB PO SCH (10:00)
[2022-03-08] MEDS: amLODIPine BESYLATE 5 MG TAB PO SCH (10:00)
[2022-03-08] MEDS: FERROUS SULFATE 325mg EC TAB PO SCH ×2 (10:00→21:40)
[2022-03-08] MEDS: RALOXIFENE HCL 60 MG TAB PO SCH (10:02)
[2022-03-08] MEDS ORDERED: LACTULOSE 20Gm/30ML SOLN PO ONE (11:30)
[2022-03-08] MEDS: ERTAPENEM SOD INJ 1 GM in SODIUM CHL 0.9% 50 ML IV SCH (12:04)
[2022-03-08 13:00] VITALS: BP 127/55
[2022-03-08 17:00] VITALS: BP 129/61
[2022-03-08 22:00] VITALS: BP 110/41
[2022-03-09] MEDS: KETOROLAC TROMETH 30 MG/ML 1ML VIAL IV PRN ×2 (04:02→23:19)
[2022-03-09 04:59] VITALS: BP 128/53
[2022-03-09] MEDS: ACCU-CHEK COMFORT CURVE STRIP VI SCH ×4 (06:25→21:47)
[2022-03-09] MEDS: InsuLIN REG 1unit/0.01ml Soln (100units/ml) SC SCH ×4 (06:27→21:51)
[2022-03-09 08:00] VITALS: BP 136/59
[2022-03-09 09:00] VITALS: BP 136/59
[2022-03-09] MEDS: cefTRIAXone 1GM/50ML D5W 50 ML IV SCH (09:47)
[2022-03-09] MEDS: FERROUS SULFATE 325mg EC TAB PO SCH ×2 (09:47→21:44)
[2022-03-09] MEDS: RALOXIFENE HCL 60 MG TAB PO SCH (09:49)
[2022-03-09] MEDS: DONEPEZIL HYDROCHLORIDE 5 MG TAB PO SCH (09:49)
[2022-03-09] MEDS: MEMANTINE HYDROCHLORIDE PO SCH (09:49)
[2022-03-09] MEDS: amLODIPine BESYLATE 5 MG TAB PO SCH (09:50)
[2022-03-09] MEDS: LEVOTHYROXINE SODIUM 25 MCG TAB PO SCH (09:50)
[2022-03-09] MEDS: ERTAPENEM SOD INJ 1 GM in SODIUM CHL 0.9% 50 ML IV SCH (11:13)
[2022-03-09 13:00] VITALS: BP 105/48
[2022-03-09 16:50] VITALS: BP 127/58
[2022-03-09 22:00] VITALS: BP 136/52
[2022-03-10 05:26] VITALS: BP 116/60
[2022-03-10] MEDS: ACCU-CHEK COMFORT CURVE STRIP VI SCH ×4 (06:22→20:52)
[2022-03-10] MEDS: InsuLIN REG 1unit/0.01ml Soln (100units/ml) SC SCH ×4 (06:22→20:55)
[2022-03-10 08:00] VITALS: BP 116/53
[2022-03-10] MEDS: MEMANTINE HYDROCHLORIDE PO SCH (08:36)
[2022-03-10] MEDS: cefTRIAXone 1GM/50ML D5W 50 ML IV SCH (08:36)
[2022-03-10] MEDS: FERROUS SULFATE 325mg EC TAB PO SCH ×2 (08:36→20:51)
[2022-03-10] MEDS: DONEPEZIL HYDROCHLORIDE 5 MG TAB PO SCH (08:37)
[2022-03-10] MEDS: amLODIPine BESYLATE 5 MG TAB PO SCH (08:37)
[2022-03-10] MEDS: LEVOTHYROXINE SODIUM 25 MCG TAB PO SCH (08:37)
[2022-03-10] MEDS: RALOXIFENE HCL 60 MG TAB PO SCH (08:37)
[2022-03-10 09:00] VITALS: BP 116/53
[2022-03-10] MEDS: ERTAPENEM SOD INJ 1 GM in SODIUM CHL 0.9% 50 ML IV SCH (09:39)
[2022-03-10] MEDS ORDERED: POLYETHYLENE GLYCOL 17 GM PWDR PO ONE (12:45)
[2022-03-10 13:00] VITALS: BP 116/52
[2022-03-10 16:48] VITALS: BP 113/48
[2022-03-10] MEDS: LORazepam 0.5 MG TAB PO PRN (20:41)
[2022-03-10] MEDS: DOCUSATE SOD 100 MG CAP PO SCH (20:51)
[2022-03-10 21:56] VITALS: BP 125/56
[2022-03-11 04:54] VITALS: BP 129/57
[2022-03-11] MEDS: ACCU-CHEK COMFORT CURVE STRIP VI SCH ×4 (05:59→21:25)
[2022-03-11] MEDS: InsuLIN REG 1unit/0.01ml Soln (100units/ml) SC SCH ×4 (06:00→21:27)
[2022-03-11 08:00] VITALS: BP 121/58
[2022-03-11 08:30] VITALS: BP 121/58
[2022-03-11] MEDS: cefTRIAXone 1GM/50ML D5W 50 ML IV SCH (08:48)
[2022-03-11] MEDS: FERROUS SULFATE 325mg EC TAB PO SCH ×2 (08:49→21:23)
[2022-03-11] MEDS: RALOXIFENE HCL 60 MG TAB PO SCH (08:49)
[2022-03-11] MEDS: DONEPEZIL HYDROCHLORIDE 5 MG TAB PO SCH (08:49)
[2022-03-11] MEDS: DOCUSATE SOD 100 MG CAP PO SCH ×2 (08:49→21:22)
[2022-03-11] MEDS: MEMANTINE HYDROCHLORIDE PO SCH (08:49)
[2022-03-11] MEDS: LEVOTHYROXINE SODIUM 25 MCG TAB PO SCH (08:50)
[2022-03-11] MEDS: amLODIPine BESYLATE 5 MG TAB PO SCH (08:50)
[2022-03-11] MEDS: ERTAPENEM SOD INJ 1 GM in SODIUM CHL 0.9% 50 ML IV SCH (09:53)
[2022-03-11 12:26] VITALS: BP 131/57
[2022-03-11] MEDS: Glucerna Carbsteady SHAKE Chocolate 8oz PO SCH ×2 (14:25→21:25)
[2022-03-11 17:24] VITALS: BP 124/50
[2022-03-11] MEDS: LORazepam 0.5 MG TAB PO PRN (21:23)
[2022-03-11 21:44] VITALS: BP 134/51
[2022-03-12 05:00] VITALS: BP 132/43
[2022-03-12] MEDS: InsuLIN REG 1unit/0.01ml Soln (100units/ml) SC SCH ×3 (06:05→18:43)
[2022-03-12] MEDS: ACCU-CHEK COMFORT CURVE STRIP VI SCH ×3 (06:05→18:44)
[2022-03-12 09:12] VITALS: BP 123/61
[2022-03-12] MEDS: FERROUS SULFATE 325mg EC TAB PO SCH (09:57)
[2022-03-12] MEDS: DOCUSATE SOD 100 MG CAP PO SCH (09:57)
[2022-03-12] MEDS: LEVOTHYROXINE SODIUM 25 MCG TAB PO SCH (09:57)
[2022-03-12] MEDS: DONEPEZIL HYDROCHLORIDE 5 MG TAB PO SCH (09:57)
[2022-03-12] MEDS: amLODIPine BESYLATE 5 MG TAB PO SCH (09:59)
[2022-03-12] MEDS: Glucerna Carbsteady SHAKE Chocolate 8oz PO SCH (10:00)
[2022-03-12] MEDS: MEMANTINE HYDROCHLORIDE PO SCH (10:00)
[2022-03-12] MEDS: RALOXIFENE HCL 60 MG TAB PO SCH (10:01)
[2022-03-12] MEDS: ERTAPENEM SOD INJ 1 GM in SODIUM CHL 0.9% 50 ML IV SCH (10:01)
[2022-03-12] MEDS ORDERED: NITR-52 PO (10:39)
[2022-03-12] MEDS ORDERED: TRAM50TA2 PO (10:39)
[2022-03-12 13:15] VITALS: BP 136/63
[2022-03-12 17:13] VITALS: BP 122/80
[2022-03-12 17:20] VITALS: BP 122/80
== END 2022-03-12 18:30 | disposition home or self-care (01) | DRG 689 ==
LOC: ER 14:34 → EDBD 14:34 → TELE 18:10 → TELE-EAST 03-05 17:48
PROVIDERS: ADMIT Registered Nurse; ATTEND Family Medicine
PROC: 05H933Z Insertion of Infusion Device into Right Brachial Vein, Percutaneous Approach (ICD-10-PCS; principal; 2022-03-08)
PROC: B54MZZA Ultrasonography of Right Upper Extremity Veins, Guidance (ICD-10-PCS; 2022-03-08)
DX: N10 Acute pyelonephritis (principal); I50.33 Acute on chronic diastolic (congestive) heart failure; Z16.12 Extended spectrum beta lactamase (ESBL) resistance; M54.50 Low back pain, unspecified; E78.5 Hyperlipidemia, unspecified; D63.8 Anemia in other chronic diseases classified elsewhere; E03.9 Hypothyroidism, unspecified; E11.65 Type 2 diabetes mellitus with hyperglycemia; F03.90 Unspecified dementia, unspecified severity, without behavioral disturbance, psychotic disturbance, mood disturbance, and anxiety; G89.29 Other chronic pain; I11.0 Hypertensive heart disease with heart failure; M47.9 Spondylosis, unspecified; Z88.3 Allergy status to other anti-infective agents; Z20.822 Contact with and (suspected) exposure to COVID-19; Z83.3 Family history of diabetes mellitus; B96.20 Unspecified Escherichia coli [E. coli] as the cause of diseases classified elsewhere; Z90.710 Acquired absence of both cervix and uterus
CPT/HCPCS: 36415; 72100; 72128; 72131; 74176; 80053; 80061; 81001; 82962; 83036; 83880; 84443; 84484; 85025; 85379; 87040; 87077; 87086; 87088; 87186; 87426; 93005; 96374; 96375; 97163; G0378; J0696; J1100; J1335; J1815; J1885